=== PATIENT | female | born 1965 | race Caucasian/White ===

== ENCOUNTER 2023-03-25 13:32 | Outpatient (AMB) | payer OTHER, SELFPAY ==
--- NOTE | 2023-03-25 13:38 | AM.OFFWIN_ITS ---
Intake Vital Signs 03/25/23 13:40 Weight 115 lb BP 100/60 Blood Pressure Location Lt brachial Position Sitting Pulse 77 Pulse Source Pulse Oximeter Pulse Oximetry (%) 99 Oxygen Delivery Method Room Air Intake Visit Reasons: [employer] LT foot Injury (car Door) Intake Note: Patient here because she had a car door close on her left foot and was barefoot, it is now swollen and black and blue. she has had surgery and a pin put in that foot about 10 yrs ago. she has tried to ice it and take advil but it does not help. Patient Tobacco Use Status: Never used Tobacco Allergies No Known Allergies Allergy (Verified 03/25/23 13:43) Do you need a note to return to daycare/school/sports/work: No HPI HPI Comments History of Present Illness Details The patient presents Urgent Care for evaluation toe injury. She states that she was standing on the edge of her car wiping her windows and the door closed directly on her toes she was not wearing any shoes at the time. Now she has toe pain. PFS Social History Patient Tobacco Use Status: Never used Tobacco Physical Exam Vital Signs: Last Vital Signs Pulse 77 03/25/23 13:40 BP 100/60 03/25/23 13:40 Pulse Ox 99 03/25/23 13:40 Oxygen Delivery Method Room Air 03/25/23 13:40 Const General: healthy appearing and no acute distress Orientation/consciousness: patient oriented x3 Eyes Corneas: corneas normal Pupils: Equal, round and reactive pupils present Chest Chest palpation & inspection: no tenderness Resp Effort & Inspection: normal respiratory effort and able to speak in complete sentences GI Palpation (GI): nontender Neuro General: patient oriented x3 Cranial nerves: Yes Equal, round and reactive pupils present Extrem Other: Right foot: Mild swelling to the left great toe with ecchymosis noted on the plantar surface. Tender to palpation at the MTP joint. Psych Appearance: grossly normal Attitude: cooperative Assessment & Plan Assessment & Plan (1) Toe injury: Code(s): S99.929A - Unspecified injury of unspecified foot, initial encounter Plan: X-ray of the toe reveals no acute fractures and the pain it appears in good position. Patient was given a postop shoe and recommended to use ibuprofen and Tylenol for pain. Orders: Orders XR toe LT min 2V Today S99.929A - Unspecified injury of unspecified foot, initial encounter Coding Level of Care Code Est Pt Level 3 (38783) Diagnoses Toe injury S99.929A
[2023-03-25 13:40] VITALS: BP 100/60; PULSE 77; O2SAT 99
== END 2023-03-25 14:39 | disposition home or self-care (01) ==
PROVIDERS: Visit Provider Emergency Medicine
DX: S99.929A Unspecified injury of unspecified foot, initial encounter (principal)
CPT/HCPCS: 99213

== ENCOUNTER 2023-03-25 14:04 | Outpatient (REF) | payer OTHER, SELFPAY ==
--- NOTE | ~2023-03-25 | XR_ITS ---
EXAMINATION: XR TOES, LEFT CLINICAL INFORMATION: Injury. COMPARISON: None available. TECHNIQUE: 3 views of the left toes were obtained. FINDINGS: Small approximately 2 mm ossific/calcific body adjacent to the lateral aspect of the fourth middle phalanx. Anatomic alignment. Obliquely oriented screw traversing the distal first metatarsal without evidence of hardware fracture or failure. No osseous erosions. No unexpected radiopaque foreign bodies. No abnormal soft tissue calcifications. XR/XR toe LT min 2V IMPRESSION: 1. Small 2 mm ossific/calcific body adjacent to the lateral aspect of the fourth middle phalanx, uncertain if this represents sequela of an avulsion fracture, foreign body or small osteophyte. Correlate for point tenderness. 2. Obliquely oriented screw traversing the distal first metatarsal without evidence of hardware failure.
== END 2023-03-25 14:05 | disposition home or self-care (01) ==
LOC: HO.HMGCX 14:04
PROVIDERS: PCP Internal Medicine; Visit Provider Emergency Medicine
DX: S99.922A Unspecified injury of left foot, initial encounter (principal)
CPT/HCPCS: 73660